=== PATIENT | female | born 1985 | race Caucasian/White ===

== ENCOUNTER 2024-10-01 21:33 | Emergency (ER) | payer MEDICAID ==
[~2024-10-01] VITALS: Ht 152.4 cm; Wt 74.4 kg
[2024-10-01 21:43] VITALS: O2SAT 100
[2024-10-01 22:37] LABS: CLARITY URINE CLEAR (CLEAR); COLOR URINE YELLOW (YELLOW); GLUCOSE URINE NEGATIVE (NEGATIVE); KETONES URINE NEGATIVE (NEGATIVE); LEUKOCYTE ESTERASE URINE NEGATIVE (NEGATIVE); NITRITE URINE NEGATIVE (NEGATIVE); OCCULT BLOOD URINE NEGATIVE (NEGATIVE); PH URINE 6.0 (4.5-8.0); PROTEIN URINE NEGATIVE (NEGATIVE); SPECIFIC GRAVITY URINE 1.004 (1.005-1.030); UROBILINOGEN URINE 0.2 E.U./dL (0.2-1.0)
[2024-10-01 23:02] LABS: BASOPHILS % 0.5 % (0.0-2.0); EOSINOPHILS % 1.7 % (0.0-5.0); HEMATOCRIT. 40.8 % (36.0-48.0); HEMOGLOBIN. 13.6 g/dL (12.0-16.0); LYMPHOCYTES % 29.5 % (20.0-50.0); MEAN PLATELET VOLUME 7.4 fl (7.4-10.4); MONOCYTES % 6.9 % (2.0-8.0); NEUTROPHILS % 61.4 % (40.0-76.0); PLATELET 320 x1000/uL (130-400); RED BLOOD CELL COUNT 4.44 mill/uL (4.2-5.4); RED CELL DISTRIBUTION WIDTH 13.1 % (11.6-14.6)
[2024-10-01 23:07] LABS: INR 1.0
[2024-10-01 23:22] LABS: CREATININE 0.6 mg/dL (0.6-1.0); UREA NITROGEN BLOOD 10 mg/dL (9-23)
[2024-10-02] LABS: B-HCG QUANTITATIVE 5345 mIU/mL (<6)
[2024-10-02 02:06] VITALS: BP 103/74; PULSE 79; RESP 18; TEMP 36.8; O2SAT 98
== END 2024-10-02 02:20 | disposition home or self-care (01) ==
LOC: ER 21:33 → EDSEX 21:33 → ER 10-02 02:20
DX: O20.0 Threatened abortion (principal); Z3A.00 Weeks of gestation of pregnancy not specified
CPT/HCPCS: 36415; 76801; 80048; 81003; 84702; 85025; 86850; 86900; 99284